=== PATIENT | male | born 1950 | race Caucasian/White ===

== ENCOUNTER 2019-06-17 05:23 | Emergency (ER) | payer MEDICARE, BC ==
[~2019-06-17] VITALS: Ht 180.3 cm; Wt 111.4 kg
[2019-06-17 05:35] VITALS: BP 158/89; PULSE 85; TEMP 97.2
[2019-06-17] MEDS ORDERED: FLEXERIL 1010 MG/TAB PO (06:34)
== END 2019-06-17 06:46 | disposition home or self-care (01) ==
LOC: COL.ER 05:23
DX: S30.0XXA Contusion of lower back and pelvis, initial encounter (principal); W18.42XA Slipping, tripping and stumbling without falling due to stepping into hole or opening, initial encounter; Y92.009 Unspecified place in unspecified non-institutional (private) residence as the place of occurrence of the external cause

== ENCOUNTER 2021-05-24 06:54 | Day surgery (SDC) | payer MEDICARE, BC ==
[2021-05-24] VITALS (7 sets, daily range): BP systolic 122–141; BP diastolic 44–66; PULSE 71–79; TEMP 97.3–98
[~2021-05-24] VITALS: Ht 180.3 cm; Wt 107.9 kg
[~2021-05-24 06:54] MED LIST: FLEXERIL 1010 MG/TAB PO
[2021-05-24] MEDS ORDERED: GLUCOPHAGE1000 MG PO (08:19)
[2021-05-24] MEDS ORDERED: ACTOS 45MG45 MG/TAB PO (08:21)
[2021-05-24] MEDS ORDERED: BYDUREON B2 MG/0.85 SQ (08:22)
[2021-05-24] MEDS ORDERED: LASIX 20MG TABL20 MG PO (08:23)
[2021-05-24] MEDS ORDERED: AVAPRO TAB150 MG/TAB PO (08:24)
[2021-05-24] MEDS ORDERED: PRAVACHOL 40MG40 MG PO (08:25)
[2021-05-24] MEDS ORDERED: PROSCAR 5MG5 MG PO (08:25)
[2021-05-24] MEDS ORDERED: FLOMAX 0.40.4 MG/CAP PO (08:27)
[2021-05-24] MEDS ORDERED: ZYRTEC 10MG10 MG PO (08:28)
[2021-05-24] MEDS ORDERED: PROTONIX 40MG T40 MG PO (08:29)
[2021-05-24] MEDS ORDERED: ICAPS AREDS2 S1 EACH PO (08:30)
[2021-05-24] MEDS ORDERED: MASON NATURAL2000 IU PO (08:31)
[2021-05-24] MEDS ORDERED: NORCO 325 MG-51 TAB PO (10:16)
== END 2021-05-24 14:15 | disposition home or self-care (01) ==
LOC: SDCO 06:54
DX: K43.9 Ventral hernia without obstruction or gangrene (principal); K21.9 Gastro-esophageal reflux disease without esophagitis; E78.5 Hyperlipidemia, unspecified; E11.9 Type 2 diabetes mellitus without complications; I10 Essential (primary) hypertension; G47.33 Obstructive sleep apnea (adult) (pediatric); J30.9 Allergic rhinitis, unspecified; G89.29 Other chronic pain; M54.9 Dorsalgia, unspecified; Z20.822 Contact with and (suspected) exposure to COVID-19; Z79.84 Long term (current) use of oral hypoglycemic drugs; Z79.899 Other long term (current) drug therapy; Z80.0 Family history of malignant neoplasm of digestive organs; Z83.3 Family history of diabetes mellitus; Z82.3 Family history of stroke
CPT/HCPCS: C1781; J0690; J1170; J2405; J2704; J2710; J3010; J7120

== ENCOUNTER 2021-12-05 18:23 | Emergency (ER) | payer MEDICARE, BC ==
[~2021-12-05] VITALS: Ht 180.3 cm; Wt 113.6 kg
[~2021-12-05 18:23] MED LIST changes: +ACTOS 45MG45 MG/TAB PO; +AVAPRO TAB150 MG/TAB PO; +BYDUREON B2 MG/0.85 SQ; +FLOMAX 0.40.4 MG/CAP PO; +GLUCOPHAGE1000 MG PO; +ICAPS AREDS2 S1 EACH PO; +LASIX 20MG TABL20 MG PO; +MASON NATURAL2000 IU PO; +NORCO 325 MG-51 TAB PO; +PRAVACHOL 40MG40 MG PO; +PROSCAR 5MG5 MG PO; +PROTONIX 40MG T40 MG PO; +ZYRTEC 10MG10 MG PO
[2021-12-05 18:53] VITALS: BP 160/71; TEMP 98.5
[2021-12-05] MEDS ORDERED: CEPHALEXIN500 M1 PO (20:13)
[2021-12-05 20:23] VITALS: PULSE 84
== END 2021-12-05 20:30 | disposition home or self-care (01) ==
LOC: COL.ER 18:23
DX: S61.216A Laceration without foreign body of right little finger without damage to nail, initial encounter (principal); W23.1XXA Caught, crushed, jammed, or pinched between stationary objects, initial encounter

== ENCOUNTER → 2022-06-06 | Outpatient (CLI) | payer MEDICARE, BC ==
[~2022-06-06] MED LIST changes: +CEPHALEXIN500 M1 PO
== END ==
LOC: MHCPAIN 10:47
DX: M51.36 Other intervertebral disc degeneration, lumbar region (principal); G83.14 Monoplegia of lower limb affecting left nondominant side; E11.40 Type 2 diabetes mellitus with diabetic neuropathy, unspecified
CPT/HCPCS: G0463

== ENCOUNTER → 2022-08-06 | Outpatient (CLI) | payer MEDICARE, BC | LOC: MHCPAIN 09:56 | DX: M51.36 Other intervertebral disc degeneration, lumbar region (principal); G83.14 Monoplegia of lower limb affecting left nondominant side; E11.40 Type 2 diabetes mellitus with diabetic neuropathy, unspecified | CPT/HCPCS: G0463 ==

== ENCOUNTER → 2022-11-05 | Outpatient (CLI) | payer MEDICARE, BC | LOC: MHCPAIN 10:04 | DX: M53.3 Sacrococcygeal disorders, not elsewhere classified (principal); M54.50 Low back pain, unspecified; M79.2 Neuralgia and neuritis, unspecified; R10.2 Pelvic and perineal pain | CPT/HCPCS: G0463 ==

== ENCOUNTER 2023-02-08 08:22 | Emergency (ER) | payer MEDICARE, BC ==
[~2023-02-08] VITALS: Ht 180.3 cm; Wt 112.7 kg
[2023-02-08 08:25] VITALS: TEMP 98
[2023-02-08 09:13] LABS: COLLECTION METHOD CLEAN CATCH
[2023-02-08 09:17] LABS: BASO % 0.5 % (0.0-2.0); EOS # 0.2 K/mm3 (0.0-0.7); GRAN # 4.6 K/mm3 (1.4-6.5); HEMATOCRIT 41.3 % (42.0-52.0); HEMOGLOBIN 13.5 g/dl (13.5-18.0); LYMPH % 26.9 % (20.0-51.0); MEAN CELL VOLUME 98 fl (80.0-100.0); MEAN CORPUSCULAR HEMOGLOBIN 32 pg (27-31); MEAN CORPUSCULAR HGB CONC 33 g/dl (33.0-37.0); MEAN PLATELET VOLUME 9.5 fl (7.4-10.4); MONO # 0.6 K/mm3 (0.1-0.6); MONO % 8.3 % (1.7-9.3); PLATELET COUNT 235 K/mm3 (130-400); RED BLOOD COUNT 4.23 M/mm3 (4.20-5.60)
[2023-02-08 09:19] LABS: MUCOUS Present (NOT PRESENT); SQUAMOUS EPITHELIAL 0-2 /hpf (0-10); URINE BACTERIA Rare /hpf (NONE SEEN); URINE RBC 0-2 /hpf (0-2)
[2023-02-08 09:23] LABS: URINE APPEARANCE Clear (CLEAR/HAZY); URINE COLOR Amber (YELLOW); URINE GLUCOSE Negative (NEGATIVE); URINE PROTEIN(semi-quant) 2+ (NEGATIVE)
[2023-02-08 09:24] LABS: URINE BLOOD Negative (NEGATIVE); URINE KETONE TRACE (NEGATIVE); URINE NITRATE Negative (NEGATIVE)
[2023-02-08 09:39] LABS: ALBUMIN 4.2 gm/dL (3.4-4.8); BILIRUBIN,TOTAL 0.7 mg/dL (0.2-1.2); CALCIUM 9.3 mg/dL (8.4-10.2); CREATININE, serum 1.84 mg/dL (0.72-1.25)
[2023-02-08 10:30] VITALS: BP 161/84; PULSE 83
[2023-02-08] MEDS ORDERED: NORCO 325 MG-51 TAB PO (10:55)
== END 2023-02-08 11:13 | disposition home or self-care (01) ==
LOC: COL.ER 08:22
PROVIDERS: Emergency Medicine
DX: M79.651 Pain in right thigh (principal); K40.20 Bilateral inguinal hernia, without obstruction or gangrene, not specified as recurrent
CPT/HCPCS: Q9967

== ENCOUNTER 2024-06-21 08:49 | Day surgery (SDC) | payer MEDICARE, BC ==
[~2024-06-21] VITALS: Ht 180.3 cm; Wt 104.7 kg
[~2024-06-21 08:49] MED LIST changes: +BETAPACE 120MG120 MG PO; +ELIQUIS 5MG PO; -GLUCOPHAGE1000 MG PO; +GLUCOPHAGE500 MG/TAB PO; +JARDIANCE25 PO; +LR 1,000 ML IV SCH; -MASON NATURAL2000 IU PO; +Ondansetron 4 MG/2 ML VIAL IV PRN; +PROBIOTIC BLEN1 EACH PO; +TOPROL XL 50MG50 MG PO; +VITAMIND3 5000 PO
[2024-06-21 10:00] VITALS: BP 136/80; PULSE 72; TEMP 97.1
[2024-06-21] MEDS ORDERED: Lidocaine PF 2% (20 MG/ML) 5 ML VIAL ONE (10:04)
[2024-06-21] MEDS ORDERED: OCUVITE1 TA1 PO (10:07)
[2024-06-21] MEDS ORDERED: GLUCOPHAGE XR500 M1 PO (10:09)
[2024-06-21 10:55] VITALS: BP 124/70; PULSE 74
[2024-06-21 11:10] VITALS: BP 125/74; PULSE 73
[2024-06-21 11:25] VITALS: BP 123/79; PULSE 73
--- NOTE | 2024-06-21 13:59 | NUR ---
1055 PATIENT RETURNS [place] [facility] [place]. PT AWAKE AND ALERT. RESPIRATIONS UNLABORED. AMBULATED TO RECLINER CHAIR WITH 2:1 SBA. PT DENIES NAUSEA OR ABDOMINAL PAIN. HOOKED UP TO MONITOR AND VS OBTAINED. CALL LIGHT AT SIDE AND PRESENT. 1100 PATIENT TOLERATING COFFEE AND MUFFIN WITHOUT NAUSEA OR DIFFICULTY SWALLOWING. 1110 IN ROOM SPEAKING WITH PATIENT. 1120 D/C INSTRUCTIONS REVIEWED WITH PATIENT. PT VERBALIZED UNDERSTANDING AND A COPY OF INSTRUCTIONS PROVIDED IN D/C FOLDER. 1130 PATIENT DRESSES SELF. 1145 PATIENT DISCHARGED FROM UNIT VIA W/C TO A PERSONAL VEHICLE. PT LEFT HOSPITAL IN STABLE CONDITION.
== END 2024-06-21 11:45 | disposition home or self-care (01) ==
LOC: SDCO 08:49
DX: Z12.11 Encounter for screening for malignant neoplasm of colon (principal); D12.0 Benign neoplasm of cecum; D12.2 Benign neoplasm of ascending colon; D12.4 Benign neoplasm of descending colon; D12.5 Benign neoplasm of sigmoid colon; K57.30 Diverticulosis of large intestine without perforation or abscess without bleeding; K64.0 First degree hemorrhoids; E11.9 Type 2 diabetes mellitus without complications; Z79.84 Long term (current) use of oral hypoglycemic drugs; Z79.85 Long-term (current) use of injectable non-insulin antidiabetic drugs; Z79.01 Long term (current) use of anticoagulants
CPT/HCPCS: J2704; J7120